=== PATIENT | female | born 2000 | race Hispanic/Latino ===

== ENCOUNTER 2024-08-26 08:39 | Emergency (ER) | payer MEDICAID ==
[2024-08-26] MEDS ORDERED: fentaNYL 50 mcg/mL 1 mL Vial ONE (10:56)
== END 2024-08-26 10:30 | disposition home or self-care (01) ==
LOC: CSHERS 08:39
DX: J06.9 Acute upper respiratory infection, unspecified (principal)
CPT/HCPCS: 99282; J3010

== ENCOUNTER 2024-09-05 02:09 | Emergency (ER) | payer MEDICAID ==
[2024-09-05] MEDS ORDERED: Acetaminophen 500 MG TAB ONE (03:43)
[2024-09-05 04:08] LABS: Bilirubin Neg (Negative); Blood, Urine Negative (Negative); Clarity Clear (Clear); Glucose, Urine (Dipstick) Normal (Negative); Ketone, Urine Negative (Negative); Leukocyte 500 (Negative); Nitrite Negative (Negative); Protein, Urine (Dipstick) Negative (Neg-Trace); Specific Gravity, Urine 1.005 (1.005-1.030); Urobilinogen Normal mg/dL (Less than 2); pH, Urine 6.5 (5.0-9.0)
[2024-09-05 04:10] LABS: Pregnancy Test - Urine (BHCG) Negative (Negative)
[2024-09-05 04:11] LABS: Pregu Control Background? CLEAR/WHITE (CLR/WHITE); Pregu Control Bar Appear? YES (CONTROL BAR); Specific Gravity 1.005 (1.002-1.036)
[2024-09-05 04:42] LABS: #Basophils 0.01 10x3/uL (0.0-0.2); #Eosinophils 0.03 10x3/uL (0.0-0.5); #Monocytes 0.48 10x3/uL (0.0-1.1); #Neutrophils 8.96 10x3/uL (1.5-8.4); %Basophils 0.1 % (0.0-2.0); %Eosinophils 0.3 % (0.0-6.0); %Lymphocytes 15.3 % (18.0-47.0); %Monocytes 4.3 % (0.0-10.0); %Neutrophils 79.6 % (40.0-75.0); Hematocrit 37.4 % (34.9-44.5); Hemoglobin 12.4 g/dL (12.0-15.5); Mean Corpuscular HGB CONC 33.2 g/dL (32.0-36.0); Mean Corpuscular Hemoglobin 27.9 pg (27.0-33.0); Mean Platelet Volume 9.2 fL (7.4-10.4); Platelet Count 289 10x3/uL (150-450); RBC Distribution Width 12.2 % (11.5-14.5); Red Blood Cell (RBC) Count 4.45 10x6/uL (3.90-5.03); White Blood Cell (WBC) Count 11.2 10x3/uL (3.5-10.5)
[2024-09-05 04:51] LABS: Bacteria/HPF Rare-Few HPF (None Seen); CAUTI Indications for Culture Pelvic or flank pain; RBC/HPF 0-3 HPF (0-3)
[2024-09-05 04:52] LABS: Urine Culture Reflex No No
[2024-09-05 05:07] LABS: ALT (SGPT) 27 U/L (8-55); AST (SGOT) 25 U/L (5-34); Albumin 3.8 g/dL (3.5-5.0); Alkaline Phosphatase 96 U/L (40-110); Anion Gap 14 mmol/L (10-20); BUN (Urea Nitrogen) 10 mg/dL (7.0-18.7); Bilirubin, Total 0.3 mg/dL (0.2-1.2); Calc. Creatinine Clearance 0 mL/min (70-130); Carbon Dioxide 23 mmol/L (22-29); Chloride 105 mmol/L (98-107); Estimated GFR 126; Globulin 3.3 g/dL (2.4-3.5); Glucose 105 mg/dL (70-105); Lipase 29 U/L (8-78); Potassium 4.3 mmol/L (3.5-5.1); Protein, Total 7.1 g/dL (6.0-8.3); Sodium 138 mmol/L (136-145)
[2024-09-05 14:43] LABS: Chlamydia by PCR, Vaginal Swab Not Detected (NotDetected); GC by PCR, Vaginal Swab Not Detected (NotDetected)
== END 2024-09-05 05:43 | disposition home or self-care (01) ==
LOC: CSHERS 02:09
DX: R10.30 Lower abdominal pain, unspecified (principal)
CPT/HCPCS: 74176; 80053; 81001; 81025; 83690; 85025; 87480; 87491; 87510; 87591; 87660

== ENCOUNTER 2025-07-06 08:40 | Emergency (ER) | payer MEDICAID, SELFPAY ==
[2025-07-06] MEDS ORDERED: Ketorolac Tromethamine 30 MG (1 mL) VIAL ONE (10:12)
[2025-07-06 10:28] LABS: #Basophils Less than 0.03 10x3/uL (0.0-0.2); #Eosinophils 0.06 10x3/uL (0.0-0.5); #Monocytes 0.47 10x3/uL (0.0-1.1); #Neutrophils 5.05 10x3/uL (1.5-8.4); %Basophils 0.3 % (0.0-2.0); %Eosinophils 0.9 % (0.0-6.0); %Lymphocytes 17.6 % (18.0-47.0); %Monocytes 6.9 % (0.0-10.0); %Neutrophils 74.0 % (40.0-75.0); Hematocrit 45.4 % (34.9-44.5); Hemoglobin 16.0 g/dL (12.0-15.5); Mean Corpuscular Hemoglobin 29.2 pg (27.0-33.0); Mean Corpuscular Volume 82.8 fL (81.6-98.3); Platelet Count 268 10x3/uL (150-450); Red Blood Cell (RBC) Count 5.48 10x6/uL (3.90-5.03); White Blood Cell (WBC) Count 6.82 10x3/uL (3.5-10.5)
[2025-07-06 10:44] LABS: BHCG - Serum Negative (NEGATIVE); Pregs Control Background? CLEAR/WHITE (CLR/WHITE); Pregs Control Bar Appear? YES (CONTROL BAR)
[2025-07-06 10:56] LABS: ALT (SGPT) 49 U/L (Less than 34); AST (SGOT) 91 U/L (11-34); Albumin 4.5 g/dL (3.1-4.5); Alkaline Phosphatase 106 U/L (40-110); Anion Gap 18 mmol/L (10-20); BUN (Urea Nitrogen) 12 mg/dL (7.0-18.7); Bilirubin, Total 0.3 mg/dL (0.3-1.2); Calc. Creatinine Clearance 0 mL/min (70-130); Calcium 9.9 mg/dL (7.8-10.44); Carbon Dioxide 18 mmol/L (22-29); Chloride 102 mmol/L (98-107); Globulin 4.4 g/dL (2.4-3.5); Glucose 103 mg/dL (70-105); Potassium 3.3 mmol/L (3.5-5.1); Sodium 135 mmol/L (136-145)
[2025-07-06 11:47] LABS: Glucose, Urine (Dipstick) Normal (Negative); Leukocyte 500 (Negative); Protein, Urine (Dipstick) 100 mg/dl (Neg-Trace); Specific Gravity, Urine 1.015 (1.005-1.030)
[2025-07-06 11:59] LABS: Bacteria/HPF 4+ HPF (None Seen); CAUTI Indications for Culture Pelvic or flank pain; RBC/HPF 0-3 HPF (0-3); WBC/HPF Greater Than 50 HPF (0-3)
[2025-07-06 12:00] LABS: Urine Culture Reflex Yes Yes
== END 2025-07-06 12:21 | disposition home or self-care (01) ==
LOC: CSHERS 08:40
DX: A09 Infectious gastroenteritis and colitis, unspecified (principal); N39.0 Urinary tract infection, site not specified
CPT/HCPCS: 36415; 80053; 81001; 84703; 85025; 87077; 87086; 96360; 96361; J1885